=== PATIENT | female | born 1995 | race Caucasian/White ===

== ENCOUNTER 2017-08-09 14:05 | Emergency (ER) | payer MEDICAID ==
--- NOTE | 2017-08-09 15:04 | ED Physician Chart ---
ED Chief Complaint/HPI - Patient Information Date Seen:: 08/09/17 Time Seen:: 14:50 Chief Complaint:: cough History of Present Illness:: Patient's had a cough productive of green sputum for last 3-4 days. She's had no recent fever. She states she did have a fever 2 weeks ago when she had left ear pain. Patient's had intermittent cough since March 2017. Allergies:: Allergies Allergy/AdvReac Type Severity Reaction Status Date / Time ibuprofen AdvReac Verified 08/09/17 14:38 Vitals:: Vital Signs - 8 hr 08/09/17 14:32 Temp 97.7 F HR 97 RR 16 BP 125/72 O2 Sat % 96 Historian:: Patient Review:: Nurse's Note Reviewed ED Review of Systems - Review of Systems General/Constitutional: No fever, No chills, No weight loss, No weakness, No diaphoresis, No edema, No loss of appetite Skin: No skin lesions, No rash, No bruising Head: No headache, No light-headedness Eyes: No loss of vision, No pain, No diplopia ENT: No earache, No nasal drainage, No sore throat, No tinnitus Neck: No neck pain, No swelling, No thyromegaly, No stiffness, No mass noted Cardio Vascular: No chest pain, No palpitations, No PND, No orthopnea, No edema Pulmonary: No SOB, Cough, Sputum, No wheezing GI: No nausea, No vomiting, No diarrhea, No pain, No melena, No hematochezia, No constipation, No hematemesis G/U: No dysuria, No frequency, No hematuria Musculoskeletal: No bone or joint pain, No back pain, No muscle pain Endocrine: No polyuria, No polydipsia Psychiatric: No prior psych history, No depression, No anxiety, No suicidal ideation Hematopoietic: No bruising, No lymphadenopathy Allergic/Immuno: No urticaria, No angioedema Neurological: No syncope, No focal symptoms, No weakness, No paresthesia, No headache, No seizure, No dizziness, No confusion, No vertigo ED Past Medical History - Past Medical History Past Medical History: Other (gastritis) Family History: Diabetes Melitus Social History: Non Smoker, No Alcohol Surgical History: None Psychiatricy History: None Medication: Reviewed Family Medical History - Family Member Grandmother Hx Family Diabetes: Yes ED Physical Exam - Physical Examination General/Constitutional: Awake, Well-developed, well-nourished, Alert, No distress, GCS 15, Non-toxic appearing, Ambulatory Head: Atraumatic Eyes: Lids, conjuctiva normal, PERRL, EOMI Skin: Nl inspection, No rash, No skin lesions, No ecchymosis, Well hydrated, No lymphadenopathy ENMT: External ears, nose nl, Nasal exam nl, Lips, teeth, gums nl Neck: Nontender, Full ROM w/o pain, No JVD, No nuchal rigidity, No bruit, No mass, No stridor Respiratory: Nl effort/Exclusion, Clear to Auscultation, No Wheeze/Rhonchi/Rales Cardio Vascular: RRR, No murmur, gallop, rubs, NL S1 S2 GI: No tenderness/rebounding/guarding, No organomegaly, No hernia, Normal BS's, Nondistended, No mass/bruits, No McBurney tenderness : No CVA tenderness Extremities: No tenderness or effusion, Full ROM, normal strength in all extremities, No edema, Normal digits & nails Neuro/Psych: Alert/oriented, DTR's symmetric, Normal sensory exam, Normal motor strength, Judgement/insight normal, Mood normal, Normal gait, No focal deficits Misc: Normal back, No paraspinal tenderness ED Septic Shock - . Is Septic Shock (SBP<90, OR Lactate>4 mmol\L) present?: No - <6hrs of presentation: Vital Signs: Vital Signs - 8 hr // 14:32 Temp 97.7 F HR 97 RR 16 BP 125/72 O2 Sat % 96 ED Reassessment (Disposition) - Reassessment Reassessment:: After the breathing treatment patient felt slightly improved. She said she could breathe better through her nose. Repeat pulse ox was 97%. Patient to be prescribed an albuterol metered-dose inhaler to use 2 puffs every 4 hours as necessary for cough. Reassessment Condition:: Improved - Diagnosis Diagnosis:: Acute viral syndrome - Aftercare/Follow up Instructions Aftercare/Follow-Up Instructions:: Refer to Discharge Instructions - Patient Disposition Discharge/Transfer:: Home Condition at Disposition:: Stable, Improved
[2017-08-09] MEDS ORDERED: Albuterol/Ipratropium Neb 3 ML AERS HHN ONE (15:05)
[2017-08-09] MEDS: Albuterol/Ipratropium Neb 3 ML AERS HHN ONE (15:07)
== END 2017-08-09 15:44 | disposition home or self-care (01) ==
LOC: ER 14:05
DX: B34.9 Viral infection, unspecified (principal); Z88.5 Allergy status to narcotic agent
CPT/HCPCS: 81025-TC; 94640; Z7502